=== PATIENT | female | born 1980 | race American Indian/Alaskan Native ===

== ENCOUNTER 2016-12-15 22:31 | Emergency (ER) | payer SELFPAY ==
[2016-12-15 22:52] VITALS: BP 146/100
[2016-12-16 00:08] LABS: Basophils % (Auto) 0.7 % (0.0-1.8); Eosinophils % (Auto) 1.6 % (0.0-4.3); Mean Corpuscular HGB Conc 30 % (30-34); Platelet Count 328 K/mm3 (140-440); Red Blood Count 4.63 M/mm3 (3.65-5.03); Red Cell Distribution Width 18.5 % (13.2-15.2); White Blood Count 9.7 K/mm3 (4.5-11.0)
[2016-12-16 00:09] LABS: Hematocrit 29.9 % (30.3-42.9); Hemoglobin 8.8 gm/dl (10.1-14.3); Mean Corpuscular Hemoglobin 19 pg (28-32); Mean Corpuscular Volume 65 fl (79-97)
[2016-12-16 00:21] LABS: Alanine Aminotransferase 10 units/L (7-56); Alkaline Phosphatase 64 units/L (35-129); BUN/Creatinine Ratio 14; Blood Urea Nitrogen 10 mg/dL (7-17); Calcium 8.6 mg/dL (8.4-10.2); Carbon Dioxide 21 mmol/L (22-30); Chloride 100.8 mmol/L (98-107); Glucose 81 mg/dL (65-100); Lipase 50 units/L (13-60); Potassium 3.7 mmol/L (3.6-5.0); Sodium 137 mmol/L (137-145); Total Protein 7.9 g/dL (6.3-8.2)
[2016-12-16 00:26] LABS: Anion Gap 19 mmol/L
[2016-12-16] MEDS ORDERED: TYLENOL PO ONE (04:14)
[2016-12-16] MEDS ORDERED: TYLENOL ONE (04:17)
[2016-12-16 07:46] LABS: Bilirubin,Urine NEG (Negative); Blood,Urine LG (Negative); Ketones,Urine NEG (Negative); Leukocyte Esterase,Urine NEG (Negative); Mucus,Urine FEW /HPF; Nitrite,Urine NEG (Negative); Urobilinogen,Urine < 2.0 mg/dL (<2.0)
[2016-12-16 07:51] LABS: RBC,Urine > 182.0 /HPF (0.0-6.0)
== END 2016-12-15 23:12 | disposition left against medical advice (07) ==
LOC: ED 22:31
DX: Z53.21 Procedure and treatment not carried out due to patient leaving prior to being seen by health care provider (principal)
CPT/HCPCS: 36415; 80053; 81001; 83690; 85025